=== PATIENT | male | born 1975 | race Two or more races ===

== ENCOUNTER 2020-07-13 14:39 | Inpatient (IN) | payer MEDICAID ==
[~2020-07-13] VITALS: Ht 160 cm; Wt 92.5 kg
[2020-07-13] MEDS ORDERED: ACTIVATED CHARCOAL 50 GM/240 ML SUSPENSION PO ONE (15:15)
[2020-07-13 15:58] LABS: BASOPHILS % (AUTO) 0.8 % (0.0-2.0); EOSINOPHILS % (AUTO) 1.2 % (1.0-6.0); HEMATOCRIT 38.5 % (41-53); HEMOGLOBIN 13.1 g/dL (13.5-17.5); LYMPHOCYTES # (AUTO) 1.5 K/uL (1.0-4.8); LYMPHOCYTES % (AUTO) 23.2 % (22.0-44.0); MEAN CORPUSCULAR HGB CONC 34.1 G/dL (31.0-37.0); MEAN CORPUSCULAR VOLUME 85 fL (80-100); MONOCYTES # (AUTO) 0.6 K/uL (0.1-1.0); MONOCYTES % (AUTO) 8.5 % (2.0-9.0); NEUTROPHILS # (AUTO) 4.3 K/uL (1.8-7.7); NEUTROPHILS % (AUTO) 66.3 % (40.0-70.0); PLATELET COUNT (AUTO) 266 K/uL (150-450); RED BLOOD CELL COUNT(AUTO) 4.53 MIL/uL (4.50-5.90); RED CELL DISTRIBUTION WIDTH 13.3 % (11.5-14.5)
[2020-07-13 15:59] LABS: COVID AG,FIA SOURCE NASOPHARYNGEAL
[2020-07-13 16:08] LABS: ANION GAP 12 mmol/L (8-16); CALCIUM, TOTAL 8.8 mg/dL (8.8-10.5); CARBON DIOXIDE 23 mmol/L (22-29); CHLORIDE 103 mmol/L (98-107); GLOMERULAR FILTR. RATE CALC > 60 mL/min (>60); GLUCOSE,RANDOM 131 mg/dL (70-110); POTASSIUM 3.2 mmol/L (3.5-5.1); SODIUM SERUM 138 mmol/L (136-145); UREA NITROGEN, BLOOD 12 mg/dL (7-18)
[2020-07-13 16:14] LABS: ALANINE AMINOTRANSFERASE 22 U/L (12-78); ALBUMIN 3.5 g/dL (3.4-5.0); ALKALINE PHOSPHATASE 61 U/L (46-116); ASPARTATE AMINOTRANSFERASE 10 U/L (15-37); BILIRUBIN,TOTAL 0.3 mg/dL (0.1-1.0); LIPASE 77 U/L (73-393); TOTAL PROTEIN, SERUM 7.1 g/dL (6.4-8.2)
[2020-07-13] MEDS ORDERED: POTASSIUM CHLORIDE 20 MEQ ER TABLET PO ONE (16:15)
[2020-07-13 16:25] LABS: SALICYLATE 0.4 mg/dL (2.8-20.0)
[2020-07-13 16:27] LABS: GLUCOSE,POINT OF CARE 150 MG/DL (70-110)
[2020-07-13 16:29] LABS: ACETAMINOPHEN < 2 mcg/mL (10-30)
[2020-07-13 17:05] LABS: AMPHET/METH SCREEN,URINE NEGATIVE (NEGATIVE); BARBITURATE SCREEN, URINE NEGATIVE (NEGATIVE); BENZODIAZEPINES SCREEN,URINE NEGATIVE (NEGATIVE); CANNABINOID SCREEN,URINE NEGATIVE (NEGATIVE); COCAINE SCREEN,URINE NEGATIVE (NEGATIVE); METHADONE SCREEN, URINE NEGATIVE (NEGATIVE); OPIATE SCREEN,URINE NEGATIVE (NEGATIVE)
[2020-07-13 17:12] LABS: PHENCYCLIDINE SCREEN,URINE NEGATIVE (NEGATIVE)
[2020-07-13] MEDS ORDERED: ZOLPIDEM TARTRATE 10 MG TABLET PO PRN (19:45)
[2020-07-13] MEDS ORDERED: HALOPERIDOL 5 MG TABLET PO PRN (19:45)
[2020-07-13] MEDS ORDERED: LORazepam 2 MG TABLET PO PRN (19:45)
[2020-07-14 03:19] VITALS: BP 135/80
[2020-07-14 08:06] VITALS: BP 126/83
[2020-07-14] MEDS: OLANZapine 5 MG TABLET PO SCH ×2 (08:25→16:18)
[2020-07-14] MEDS ORDERED: MAGNESIUM HYDROXIDE SUSPENSION 30 ML UDCUP PO PRN (09:00)
[2020-07-14] MEDS ORDERED: NICOTINE 14 MG/24 HOUR PATCH TD PRN (09:00)
[2020-07-14] MEDS ORDERED: ONDANSETRON HCL 4 MG TABLET PO PRN (09:00)
[2020-07-14] MEDS ORDERED: GuaiFENesin/D-METHORPHAN [SUGAR-FREE] 200-20MG/10 ML SYRUP UDCUP PO PRN (09:00)
[2020-07-14] MEDS ORDERED: LOPERAMIDE HCL 2 MG CAPSULE PO PRN (09:00)
[2020-07-14] MEDS ORDERED: PETROLATUM,WHITE 28 GM JELLY TP PRN (09:00)
[2020-07-14] MEDS ORDERED: IBUPROFEN 400 MG TABLET PO PRN (09:00)
[2020-07-14] MEDS ORDERED: ACETAMINOPHEN 325 MG TABLET PO PRN (09:00)
[2020-07-14] MEDS ORDERED: MAG HYDROX/AL HYDROX/SIMETH ES 30 ML SUSPENSION UDCUP PO PRN (09:00)
[2020-07-14] MEDS ORDERED: CloNIDine HCL 0.1 MG TABLET PO PRN (09:00)
[2020-07-14] MEDS ORDERED: DOCUSATE SODIUM 100 MG CAPSULE PO PRN (09:00)
[2020-07-14] MEDS ORDERED: ALBUTEROL SULFATE HFA 90 MCG/PUFF 8 GM INHALER IH PRN (09:00)
[2020-07-14 16:11] VITALS: BP 116/67
[2020-07-15 05:15] VITALS: BP 139/88
[2020-07-15] MEDS: OLANZapine 5 MG TABLET PO SCH ×2 (08:12→16:19)
[2020-07-15 08:35] VITALS: BP 128/80
[2020-07-15 16:27] VITALS: BP 136/87
[2020-07-16 00:16] VITALS: BP 132/81
[2020-07-16 08:33] VITALS: BP 105/66
[2020-07-16 08:33] LABS: HEMOGLOBIN A1C 5.3 % (3.8-5.6)
[2020-07-16 08:38] LABS: FREE T4 (FREE THYROXINE) 0.98 ng/dL (0.76-1.46); POTASSIUM 4.1 mmol/L (3.5-5.1); THYROID STIMULATING HORMONE 2.78 uIU/mL (0.36-3.74)
[2020-07-16] MEDS: OLANZapine 5 MG TABLET PO SCH ×2 (09:46→17:56)
[2020-07-16 18:57] VITALS: BP 110/72
[2020-07-16 19:11] LABS: COVID AG,FIA SOURCE NASAL SWAB
[2020-07-16] MEDS: SIMVASTATIN 10 MG TABLET PO SCH (20:41)
[2020-07-17 06:36] VITALS: BP 117/71
[2020-07-17 08:25] VITALS: BP 107/69
[2020-07-17] MEDS: OLANZapine 5 MG TABLET PO SCH ×2 (11:47→16:58)
[2020-07-17 16:10] VITALS: BP 141/71
[2020-07-17] MEDS: SIMVASTATIN 10 MG TABLET PO SCH (20:24)
[2020-07-18 06:18] VITALS: BP 101/69
[2020-07-18] MEDS: OLANZapine 5 MG TABLET PO SCH ×2 (08:10→16:48)
[2020-07-18 08:17] VITALS: BP 125/85
[2020-07-18] MEDS ORDERED: OLAN5TAB2 PO (12:29)
[2020-07-18] MEDS ORDERED: SIMV5TAB59 PO (12:32)
[2020-07-18 16:06] VITALS: BP 130/87
== END 2020-07-18 16:55 | disposition home or self-care (01) | DRG 750 ==
LOC: EMS 14:39 → B2S 20:04
PROVIDERS: ADMIT Psychiatry & Neurology Psychiatry; ATTEND Psychiatry & Neurology Psychiatry
DX: F20.9 Schizophrenia, unspecified (principal); R45.851 Suicidal ideations; I10 Essential (primary) hypertension; E87.6 Hypokalemia; D64.9 Anemia, unspecified; R73.9 Hyperglycemia, unspecified; Z20.828 Contact with and (suspected) exposure to other viral communicable diseases
CPT/HCPCS: 82948; 83036; 83735; 84132; 84439; 84443; 87426; 93005; 99291; G0480; G0481